=== PATIENT | female | born 1945 | race Two or more races ===

== ENCOUNTER 2018-07-27 07:40 | Day surgery (SDC) | payer OTHER ==
[~2018-07-27 07:40] MED LIST: LISINOPRIL5 MG PO
[2018-07-27] MEDS ORDERED: PERCOCET 5-3251 EACH PO (10:03)
[2018-07-27] MEDS ORDERED: COLACE100 MG PO (10:04)
== END 2018-07-27 15:03 | disposition home or self-care (01) ==
LOC: CIR.AMB 07:40
DX: K62.0 Anal polyp (principal)